=== PATIENT | male | born 1950 | race Two or more races ===

== ENCOUNTER 2022-06-08 12:57 | Emergency (ER) | payer MEDICAID, OTHER ==
[~2022-06-08] VITALS: Ht 182.9 cm; Wt 100.0 kg
[2022-06-08 14:17] LABS: Basophils # (auto) 0.1 10 ^3/uL (0-0.2); Basophils % (auto) 0.5 % (0.0-2.0); Eosinophils # (auto) 0 10 ^3/uL (0-0.8); Eosinophils % (auto) 0.3 % (0.0-7.0); Hematocrit 42.3 % (41.0-53.0); Hemoglobin 15.2 g/dL (13.5-17.5); Lymphocytes # (auto) 1.5 10 ^3/uL (0.4-5.4); Lymphocytes % (auto) 14.8 % (10.0-50.0); Mean Corpuscular Hemoglobin 32.8 pg (28.0-32.0); Mean Corpuscular Hgb Conc. 35.9 g/dL (32.0-36.0); Mean Corpuscular Volume 91.5 fL (80.0-100.0); Monocytes # (auto) 0.5 10 ^3/uL (0-1.3); Neutrophils % (auto) 79.4 % (37.0-80.0); Red Blood Cells 4.63 10^6/uL (4.5-5.90); Red Cell Distribution Width 13.7 % (11.8-14.3); White Blood Cell 10.1 10^3/uL (4.4-10.8)
[2022-06-08 14:24] LABS: Albumin 3.9 g/dL (3.4-5.0); BUN/Creatinine Ratio 20.2; Calcium 9.1 mg/dL (8.5-10.1); Potassium 4.3 mmol/L (3.5-5.1)
[2022-06-08 14:27] LABS: Bilirubin, Total 0.7 mg/dL (0.2-1.0); Total Protein 7.9 g/dL (6.4-8.2)
[2022-06-08] MEDS ORDERED: TRAM-297 PO (14:58)
[2022-06-08] MEDS ORDERED: KETOROLAC TROMETH 30 MG/ML 1ML VIAL IV ONE (15:00)
[2022-06-08] MEDS ORDERED: KETOROLAC TROMETH 60MG/2ML VIAL IM ONE (16:15)
[2022-06-08 17:30] VITALS: BP 136/83
== END 2022-06-08 18:03 | disposition home or self-care (01) ==
LOC: ER 12:57 → EDBD 12:57 → ER 18:03
DX: S22.41XA Multiple fractures of ribs, right side, initial encounter for closed fracture (principal); M54.2 Cervicalgia; W18.11XA Fall from or off toilet without subsequent striking against object, initial encounter; Y93.E1 Activity, personal bathing and showering; Y92.89 Other specified places as the place of occurrence of the external cause; Y99.8 Other external cause status
CPT/HCPCS: 36415; 70450; 71101; 72125; 80053; 85025; 93005; 96374; 99285; J1885

== ENCOUNTER 2022-06-18 19:21 | Emergency (ER) | payer MEDICAID ==
[~2022-06-18] VITALS: Ht 177.8 cm; Wt 85.0 kg
[~2022-06-18 19:21] MED LIST: TRAM-297 PO
[2022-06-18 21:29] LABS: Basophils # (auto) 0.1 10 ^3/uL (0-0.2); Basophils % (auto) 0.7 % (0.0-2.0); Eosinophils # (auto) 0.5 10 ^3/uL (0-0.8); Eosinophils % (auto) 5.6 % (0.0-7.0); Hematocrit 39.1 % (41.0-53.0); Hemoglobin 13.6 g/dL (13.5-17.5); Lymphocytes # (auto) 1.5 10 ^3/uL (0.4-5.4); Lymphocytes % (auto) 18.4 % (10.0-50.0); Mean Corpuscular Hgb Conc. 34.9 g/dL (32.0-36.0); Mean Corpuscular Volume 91.6 fL (80.0-100.0); Monocytes # (auto) 0.5 10 ^3/uL (0-1.3); Neutrophils # (auto) 5.8 10 ^3/uL (1.6-8.6); Neutrophils % (auto) 69.3 % (37.0-80.0); Red Blood Cells 4.27 10^6/uL (4.5-5.90); Red Cell Distribution Width 13.7 % (11.8-14.3); White Blood Cell 8.3 10^3/uL (4.4-10.8)
[2022-06-18 21:43] LABS: Albumin 3.3 g/dL (3.4-5.0); BUN/Creatinine Ratio 15.8; Calcium 8.9 mg/dL (8.5-10.1); Potassium 4.7 mmol/L (3.5-5.1)
[2022-06-18 21:46] LABS: Bilirubin, Total 1.1 mg/dL (0.2-1.0); Total Protein 6.8 g/dL (6.4-8.2)
[2022-06-18] MEDS ORDERED: ONDANSETRON HCL 4 MG/2 ML VIAL IV ONE (22:45)
[2022-06-18] MEDS ORDERED: HYDROmorphone HCL 2 MG/ML VL/or syr IV ONE (22:45)
[2022-06-18] MEDS ORDERED: SODIUM CHLORIDE 0.9% 500 ML IV ONE (22:45)
[2022-06-19 01:35] VITALS: BP 105/63
== END 2022-06-19 01:36 | disposition short-term general hospital (02) ==
LOC: ER 19:21 → EDBD 19:21 → ER 06-19 00:30
DX: S22.41XA Multiple fractures of ribs, right side, initial encounter for closed fracture (principal); J90 Pleural effusion, not elsewhere classified; R07.89 Other chest pain; Z79.899 Other long term (current) drug therapy; W18.39XA Other fall on same level, initial encounter; Y93.89 Activity, other specified; Y92.89 Other specified places as the place of occurrence of the external cause; Y99.8 Other external cause status
CPT/HCPCS: 36415; 70450; 71045; 71250; 72125; 74176; 80053; 82550; 84484; 85025; 93005; 96361; 96374; 96375; 99285; J1170; J2405; J7030

== ENCOUNTER 2022-12-21 18:57 | Emergency (ER) | payer MEDICAID ==
[~2022-12-21] VITALS: Ht 177.8 cm; Wt 90.0 kg
[2022-12-21] MEDS ORDERED: ONDANSETRON HCL 4 MG/2 ML VIAL IV ONE (20:00)
[2022-12-21] MEDS ORDERED: MORPHINE SULFATE INJ 2 MG/ml SYRG IV ONE (20:00)
[2022-12-21 20:12] LABS: Basophils # (auto) 0.1 10 ^3/uL (0-0.2); Basophils % (auto) 0.9 % (0.0-2.0); Eosinophils # (auto) 0.1 10 ^3/uL (0-0.8); Eosinophils % (auto) 2.2 % (0.0-7.0); Hematocrit 38.3 % (41.0-53.0); Hemoglobin 13.5 g/dL (13.5-17.5); Lymphocytes # (auto) 1.8 10 ^3/uL (0.4-5.4); Lymphocytes % (auto) 30.4 % (10.0-50.0); Mean Corpuscular Hemoglobin 32.2 pg (28.0-32.0); Mean Corpuscular Hgb Conc. 35.4 g/dL (32.0-36.0); Mean Corpuscular Volume 90.9 fL (80.0-100.0); Monocytes # (auto) 0.4 10 ^3/uL (0-1.3); Monocytes % (auto) 6.8 % (0.0-12.0); Neutrophils # (auto) 3.6 10 ^3/uL (1.6-8.6); Neutrophils % (auto) 59.7 % (37.0-80.0); Nucleated Red Blood Cells % 0.2 %; Red Blood Cells 4.21 10^6/uL (4.5-5.90); White Blood Cell 6.1 10^3/uL (4.4-10.8)
[2022-12-21 20:18] LABS: Albumin 3.8 g/dL (3.4-5.0); Potassium 4.4 mmol/L (3.5-5.1)
[2022-12-21 20:23] LABS: INR 1.05 (0.9-1.15); Partial Thromboplastin Time 28.3 sec (24.6-33.4)
[2022-12-21 20:26] LABS: BUN/Creatinine Ratio 18.7 (10.0-20.0); Bilirubin, Total 0.7 mg/dL (0.2-1.0); Total Protein 7.3 g/dL (6.4-8.2)
[2022-12-21 21:11] LABS: Urine Bacteria NONE SEEN /hpf (None Seen); Urine Blood 3+ /uL (Negative); Urine Specific Gravity 1.017 (1.001-1.035); Urine WBC 2 /hpf (0 - 3)
[2022-12-22] MEDS ORDERED: SODIUM CHLORIDE 0.9% 500 ML IV ONE (01:00)
[2022-12-22 02:00] VITALS: BP 106/56
[2022-12-22] MEDS ORDERED: KETOROLAC TROMETH 30 MG/ML 1ML VIAL IV ONE (02:15)
[2022-12-22] MEDS ORDERED: CYCLOBENZAPRINE HCL 10 MG TAB PO ONE (02:15)
== END 2022-12-22 00:50 | disposition home or self-care (01) ==
LOC: EDBD 18:57 → ER 18:57
DX: S00.83XA Contusion of other part of head, initial encounter (principal); S70.02XA Contusion of left hip, initial encounter; W18.39XA Other fall on same level, initial encounter; Y93.89 Activity, other specified; Y92.89 Other specified places as the place of occurrence of the external cause; Y99.8 Other external cause status
CPT/HCPCS: 36415; 70450; 71045; 71250; 72125; 73502; 74176; 80053; 81001; 85025; 85610; 85730; 96361; 96374; 96375; 99285; J1885; J2270; J2405; J7040

== ENCOUNTER 2023-04-11 19:43 | Emergency (ER) | payer MEDICAID ==
[~2023-04-11] VITALS: Ht 170.2 cm; Wt 82.0 kg
[2023-04-11 21:42] LABS: Basophils # (auto) 0.1 10 ^3/uL (0-0.2); Basophils % (auto) 1.1 % (0.0-2.0); Eosinophils # (auto) 0.1 10 ^3/uL (0-0.8); Eosinophils % (auto) 1.9 % (0.0-7.0); Hematocrit 42.2 % (41.0-53.0); Hemoglobin 14.8 g/dL (13.5-17.5); Lymphocytes # (auto) 1.9 10 ^3/uL (0.4-5.4); Lymphocytes % (auto) 35.6 % (10.0-50.0); Mean Corpuscular Hemoglobin 33.2 pg (28.0-32.0); Mean Corpuscular Hgb Conc. 35.1 g/dL (32.0-36.0); Mean Corpuscular Volume 94.6 fL (80.0-100.0); Monocytes # (auto) 0.4 10 ^3/uL (0-1.3); Monocytes % (auto) 6.6 % (0.0-12.0); Neutrophils # (auto) 2.9 10 ^3/uL (1.6-8.6); Neutrophils % (auto) 54.8 % (37.0-80.0); Nucleated Red Blood Cells % 0.2 %; Red Blood Cells 4.46 10^6/uL (4.5-5.90); Red Cell Distribution Width 14.1 % (11.8-14.3); White Blood Cell 5.3 10^3/uL (4.4-10.8)
[2023-04-11 22:10] LABS: Alanine Aminotransferase 16 U/L (7-40); Albumin 4.6 g/dL (3.2-4.8); Alkaline Phosphatase 66 U/L (46-116); Anion Gap 8.4 (5-15); Aspartate Aminotransferase < 8 U/L (13-40); BUN/Creatinine Ratio 20.2 (10.0-20.0); Bilirubin, Total 1.1 mg/dL (0.2-1.0); Blood Urea Nitrogen 26 mg/dL (9-23); Carbon Dioxide 28.6 mmol/L (20-30); Chloride 105 mmol/L (98-107); Glucose 89 mg/dL (74-106); Magnesium 2.1 mg/dL (1.6-2.6); Potassium 4.5 mmol/L (3.5-5.1); Sodium 142 mmol/L (136-145); Total Protein 7.4 g/dL (5.7-8.2)
[2023-04-11] MEDS ORDERED: METOCLOPRAMIDE HCL 5MG/ml INJ 2ml VIAL IV ONE (22:30)
[2023-04-11] MEDS ORDERED: diphenhdrAMINE HCL 50 MG/1 ML VL IV ONE (22:30)
[2023-04-11] MEDS ORDERED: KETOROLAC TROMETH 30 MG/ML 1ML VIAL IV ONE (22:30)
[2023-04-11] MEDS ORDERED: LACTATED RINGER'S 1,000 ML IV ONE (22:30)
[2023-04-11 23:45] VITALS: TEMP 97.6
[2023-04-11 23:50] VITALS: PULSE 55; RESP 18; O2SAT 97
[2023-04-12 03:45] VITALS: BP 109/68; PULSE 57; RESP 14; O2SAT 97
== END 2023-04-12 06:11 | disposition home or self-care (01) ==
LOC: EDBD 19:43 → ER 19:45
DX: R51.9 Headache, unspecified (principal); R41.82 Altered mental status, unspecified; E86.0 Dehydration; R79.89 Other specified abnormal findings of blood chemistry; G20 Parkinson's disease; F02.80 Dementia in other diseases classified elsewhere, unspecified severity, without behavioral disturbance, psychotic disturbance, mood disturbance, and anxiety
CPT/HCPCS: 36415; 70450; 80053; 83735; 84484; 85025; 96361; 96374; 96375; 99285; J1200; J1885; J2765

== ENCOUNTER 2023-09-17 18:02 | Inpatient (IN) | payer MEDICAID ==
[~2023-09-17] VITALS: Ht 172.7 cm; Wt 94.2 kg
[2023-09-17 19:02] LABS: Basophils # (auto) 0 10 ^3/uL (0-0.2); Basophils % (auto) 0.1 % (0.0-2.0); Eosinophils # (auto) 0 10 ^3/uL (0-0.8); Hematocrit 39.4 % (41.0-53.0); Hemoglobin 13.5 g/dL (13.5-17.5); Lymphocytes # (auto) 0.8 10 ^3/uL (0.4-5.4); Lymphocytes % (auto) 5.3 % (10.0-50.0); Mean Corpuscular Hemoglobin 32.3 pg (28.0-32.0); Mean Corpuscular Hgb Conc. 34.4 g/dL (32.0-36.0); Monocytes # (auto) 0.9 10 ^3/uL (0-1.3); Monocytes % (auto) 6.1 % (0.0-12.0); Neutrophils # (auto) 12.8 10 ^3/uL (1.6-8.6); Neutrophils % (auto) 88.5 % (37.0-80.0); Red Blood Cells 4.19 10^6/uL (4.5-5.90); Red Cell Distribution Width 13.6 % (11.8-14.3); White Blood Cell 14.5 10^3/uL (4.4-10.8)
[2023-09-17 19:16] LABS: INR 1.14 (0.9-1.15); Partial Thromboplastin Time 33.1 SEC (24.5-34.5); Prothrombin Time 11.9 sec (9.3-11.8)
[2023-09-17 19:18] LABS: Alanine Aminotransferase 20 U/L (7-40); Albumin 4.4 g/dL (3.2-4.8); Alkaline Phosphatase 88 U/L (46-116); Anion Gap 9 (5-15); Aspartate Aminotransferase 48 U/L (13-40); BUN/Creatinine Ratio 13.9 (10.0-20.0); Bilirubin, Total 1.6 mg/dL (0.2-1.0); Blood Urea Nitrogen 32 mg/dL (9-23); Calcium 9.9 mg/dL (8.5-10.1); Carbon Dioxide 22 mmol/L (20-30); Chloride 109 mmol/L (98-107); Glucose 119 mg/dL (74-106); Potassium 3.8 mmol/L (3.5-5.1); Sodium 140 mmol/L (136-145); Total Protein 7.4 g/dL (5.7-8.2)
[2023-09-17] MEDS: SODIUM CHLORIDE 0.9% 1,000 ML IVB ONE (19:23)
[2023-09-17] MEDS: KETOROLAC TROMETH 30 MG/ML 1ML VIAL IM ONE (19:23)
[2023-09-17] MEDS: ONDANSETRON ODT 4 MG TAB PO ONE (19:23)
[2023-09-17 19:30] LABS: Lipase 47 U/L (12-53)
[2023-09-17 20:06] VITALS: PULSE 79; RESP 20; O2SAT 98
[2023-09-17] MEDS: PIPERACILLIN-TAZOB 3.375GM 100 ML IV ONE (21:10)
[2023-09-17 21:13] LABS: Urine Bacteria NONE SEEN /hpf (None Seen); Urine Blood 3+ /uL (Negative); Urine Clarity HAZY (Clear); Urine Color Red (Yellow); Urine Mucus FEW (None Seen); Urine Protein, UAD 2+ (Negative); Urine Specific Gravity 1.014 (1.001-1.035); Urine Urobilinogen Normal (Negative); Urine WBC 88 /hpf (0 - 3)
[2023-09-17] MEDS: ONDANSETRON HCL 4 MG/2 ML VIAL IV ONE (22:59)
[2023-09-17] MEDS: MORPHINE SULFATE INJ 2 MG/ml SYRG IV ONE (23:01)
[2023-09-17] MEDS ORDERED: NITROGLYCERIN 0.4 MG SL TAB SL PRN (23:45)
[2023-09-17] MEDS ORDERED: MORPHINE SULFATE INJ 2 MG/ml SYRG IV PRN ×2 (23:45)
[2023-09-17] MEDS ORDERED: ACETAMINOPHEN 325 MG TAB PO PRN (23:45)
[2023-09-17] MEDS ORDERED: ONDANSETRON HCL 4 MG/2 ML VIAL IV PRN (23:45)
[2023-09-17] MEDS ORDERED: DOCUSATE SOD 100 MG CAP PO PRN (23:45)
[2023-09-18] MEDS: SODIUM CHLOR 0.9% PF (SALINE LOCK) 10ML VIAL/SYR IV SCH (06:00)
[2023-09-18 06:05] LABS: Basophils # (auto) 0 10 ^3/uL (0-0.2); Basophils % (auto) 0.4 % (0.0-2.0); Eosinophils # (auto) 0 10 ^3/uL (0-0.8); Hemoglobin 12.2 g/dL (13.5-17.5); Lymphocytes # (auto) 0.9 10 ^3/uL (0.4-5.4); Lymphocytes % (auto) 7.3 % (10.0-50.0); Mean Corpuscular Hemoglobin 32.5 pg (28.0-32.0); Monocytes # (auto) 0.7 10 ^3/uL (0-1.3); Monocytes % (auto) 6.1 % (0.0-12.0); Neutrophils # (auto) 10.2 10 ^3/uL (1.6-8.6); Neutrophils % (auto) 86.2 % (37.0-80.0); Red Blood Cells 3.77 10^6/uL (4.5-5.90); Red Cell Distribution Width 13.8 % (11.8-14.3); White Blood Cell 11.8 10^3/uL (4.4-10.8)
[2023-09-18 06:15] LABS: Alanine Aminotransferase 28 U/L (7-40); Alkaline Phosphatase 87 U/L (46-116); Anion Gap 10 (5-15); BUN/Creatinine Ratio 19.6 (10.0-20.0); Calcium 8.8 mg/dL (8.7-10.4); Carbon Dioxide 21 mmol/L (20-30); Chloride 110 mmol/L (98-107); Glucose 127 mg/dL (74-106); Sodium 141 mmol/L (136-145)
[2023-09-18 06:16] LABS: Albumin 3.7 g/dL (3.2-4.8); Aspartate Aminotransferase 51 U/L (13-40); Bilirubin, Total 1.5 mg/dL (0.2-1.0); Total Protein 6.1 g/dL (5.7-8.2)
[2023-09-18] MEDS: PIPERACILLIN-TAZOB 3.375GM 100 ML IV SCH (06:32)
[2023-09-18 06:42] LABS: Blood Urea Nitrogen 44 mg/dL (9-23)
[2023-09-18 07:45] VITALS: PULSE 79; RESP 20; O2SAT 98
[2023-09-18 11:00] VITALS: BP 102/61; PULSE 75; RESP 14; TEMP 98.3; O2SAT 98
[2023-09-18 11:01] VITALS: BP 102/61; PULSE 75; RESP 14; TEMP 98.3; O2SAT 98
[2023-09-18] MEDS: SOD CHL 0.45% 1,000 ML IV SCH (11:42)
[2023-09-18] MEDS: HEPARIN SODIUM (PORCINE) 5000 UNITS/ML 1ML VIAL SC SCH (11:42)
[2023-09-18 13:00] VITALS: BP 119/69; PULSE 67; RESP 16; TEMP 98.1; O2SAT 97
[2023-09-18] MEDS: LACTULOSE 20Gm/30ML SOLN PO ONE (15:29)
[2023-09-18] MEDS: HYDROcodone-ACET 5/325MG TAB PO PRN (15:29)
[2023-09-18 17:00] VITALS: BP_SYST 113; BP_SYST 156; BP_DIAS 66; BP_DIAS 89; PULSE 72; PULSE 84; RESP 16; RESP 20; TEMP 97.7; TEMP 98; O2SAT 94; O2SAT 97
[2023-09-18] MEDS: LACTULOSE 20Gm/30ML SOLN PO SCH (18:04)
[2023-09-18] MEDS: TAMSULOSIN HYDROCHLORIDE 0.4 MG CAP PO SCH (18:04)
[2023-09-18] MEDS ORDERED: GABA-1308 PO (18:46)
[2023-09-18] MEDS ORDERED: TAMS0.4C36 PO (18:49)
[2023-09-18] MEDS ORDERED: CHOL20007 PO (18:49)
[2023-09-18] MEDS ORDERED: NAP500T PO (18:49)
[2023-09-18] MEDS ORDERED: FAMO-12 PO (18:50)
[2023-09-18] MEDS ORDERED: MIRA50TA PO (18:50)
[2023-09-18] MEDS ORDERED: CARB-112 PO (18:51)
[2023-09-18] MEDS ORDERED: DOCU-94 PO (18:52)
[2023-09-18] MEDS ORDERED: OMEG306C PO (18:52)
[2023-09-18] MEDS ORDERED: ACET-1881 PO (18:53)
[2023-09-18 22:00] VITALS: BP 128/71; PULSE 69; RESP 20; TEMP 98.1; O2SAT 96
[2023-09-19 04:52] VITALS: BP 114/68; PULSE 86; RESP 18; TEMP 98.4; O2SAT 97
[2023-09-19 05:12] LABS: Basophils # (auto) 0.1 10 ^3/uL (0-0.2); Basophils % (auto) 0.6 % (0.0-2.0); Eosinophils # (auto) 0.2 10 ^3/uL (0-0.8); Eosinophils % (auto) 2.2 % (0.0-7.0); Hematocrit 34.8 % (41.0-53.0); Lymphocytes # (auto) 1.1 10 ^3/uL (0.4-5.4); Lymphocytes % (auto) 12.9 % (10.0-50.0); Mean Corpuscular Hemoglobin 32.2 pg (28.0-32.0); Mean Corpuscular Hgb Conc. 34.5 g/dL (32.0-36.0); Mean Corpuscular Volume 93.4 fL (80.0-100.0); Monocytes # (auto) 0.9 10 ^3/uL (0-1.3); Monocytes % (auto) 10.8 % (0.0-12.0); Neutrophils # (auto) 6.5 10 ^3/uL (1.6-8.6); Neutrophils % (auto) 73.5 % (37.0-80.0); Red Blood Cells 3.72 10^6/uL (4.5-5.90); Red Cell Distribution Width 13.9 % (11.8-14.3); White Blood Cell 8.8 10^3/uL (4.4-10.8)
[2023-09-19 05:13] LABS: Protein, Urine 247.8 mg/dL (0.0-11.9)
[2023-09-19 05:13] LABS: Chloride 110 mmol/L (98-107); Potassium 4.1 mmol/L (3.5-5.1); Sodium 142 mmol/L (136-145)
[2023-09-19 05:14] LABS: Anion Gap 8 (5-15); Carbon Dioxide 24 mmol/L (20-30)
[2023-09-19 05:16] LABS: Creatinine, Urine 93.99 mg/dL (30.0-125.0)
[2023-09-19 05:18] LABS: Uric Acid 5.9 mg/dL (3.7-9.2)
[2023-09-19 05:19] LABS: BUN/Creatinine Ratio 14.2 (10.0-20.0); Blood Urea Nitrogen 41 mg/dL (9-23); Glucose 108 mg/dL (74-106)
[2023-09-19 05:21] LABS: Phosphorus 3.5 mg/dL (2.4-5.1)
[2023-09-19 08:00] VITALS: BP 117/64; PULSE 64; RESP 18; TEMP 97.8
[2023-09-19 09:00] VITALS: BP 117/64; PULSE 64; RESP 18; TEMP 97.8; O2SAT 98
[2023-09-19 13:00] VITALS: BP_SYST 108; BP_SYST 129; BP_DIAS 58; BP_DIAS 93; PULSE 65; PULSE 83; RESP 18; RESP 20; TEMP 98; TEMP 98.3; O2SAT 95; O2SAT 96
[2023-09-19 22:00] VITALS: BP 127/70; PULSE 89; RESP 18; TEMP 97.8; O2SAT 96
[2023-09-20 05:00] VITALS: BP 106/63; PULSE 74; RESP 16; TEMP 97.7; O2SAT 94
[2023-09-20 08:00] VITALS: PULSE 67; RESP 16; O2SAT 98
[2023-09-20] MEDS ORDERED: IOHEXOL 300 MG/ML 100ML BOTTLE IJ ONE (09:49)
[2023-09-20 13:00] VITALS: BP 116/67; PULSE 67; RESP 16; TEMP 98.4; O2SAT 98
[2023-09-20] MEDS: SODIUM CHLORIDE 0.9% 1,000 ML IV ONE (16:45)
[2023-09-20 17:00] VITALS: BP 127/75; PULSE 66; RESP 18; TEMP 98.3; O2SAT 97
[2023-09-20] MEDS: cefTRIAXone 1GM/50ML D5W 50 ML IV ONE (18:17)
[2023-09-20 22:00] VITALS: BP 124/72; PULSE 77; RESP 19; TEMP 98; O2SAT 96
[2023-09-21] VITALS (8 sets, daily range): BP systolic 108–126; BP diastolic 63–72; PULSE 61–77; RESP 16–19; TEMP 97.3–98.5; O2SAT 62–99
[2023-09-21 07:12] LABS: Anion Gap 8 (5-15); Carbon Dioxide 23 mmol/L (20-30); Chloride 109 mmol/L (98-107); Potassium 4.2 mmol/L (3.5-5.1); Sodium 140 mmol/L (136-145)
[2023-09-21 07:13] LABS: Calcium 9.2 mg/dL (8.5-10.1)
[2023-09-21 07:18] LABS: BUN/Creatinine Ratio 10.8 (10.0-20.0); Blood Urea Nitrogen 33 mg/dL (9-23); Glucose 92 mg/dL (74-106)
[2023-09-21] MEDS: cefTRIAXone 1GM/50ML D5W 50 ML IV SCH (08:56)
[2023-09-21] MEDS: SODIUM CHLORIDE 0.9% 1,000 ML IV ONE (18:10)
[2023-09-21] MEDS: CALCIUM CARB 500 MG CHEW TAB PO ONE (22:49)
[2023-09-22] VITALS (7 sets, daily range): BP systolic 110–125; BP diastolic 65–74; PULSE 65–71; RESP 16–22; TEMP 97.3–98.5; O2SAT 95–98
[2023-09-23 05:00] VITALS: BP 109/68; PULSE 60; RESP 18; TEMP 98.7; O2SAT 92
[2023-09-23 09:04] VITALS: BP 122/73; PULSE 54; RESP 17; TEMP 98.5; O2SAT 96
[2023-09-23 10:27] LABS: Basophils # (auto) 0 10 ^3/uL (0-0.2); Basophils % (auto) 0.7 % (0.0-2.0); Eosinophils # (auto) 0.2 10 ^3/uL (0-0.8); Eosinophils % (auto) 3.3 % (0.0-7.0); Hematocrit 38.4 % (41.0-53.0); Hemoglobin 13.1 g/dL (13.5-17.5); Lymphocytes # (auto) 1.6 10 ^3/uL (0.4-5.4); Lymphocytes % (auto) 25.8 % (10.0-50.0); Mean Corpuscular Hemoglobin 32.5 pg (28.0-32.0); Mean Corpuscular Volume 95.6 fL (80.0-100.0); Monocytes # (auto) 0.5 10 ^3/uL (0-1.3); Monocytes % (auto) 8.1 % (0.0-12.0); Neutrophils # (auto) 3.9 10 ^3/uL (1.6-8.6); Neutrophils % (auto) 62.1 % (37.0-80.0); Nucleated Red Blood Cells % 0.1 %; Red Blood Cells 4.02 10^6/uL (4.5-5.90); Red Cell Distribution Width 13.4 % (11.8-14.3); White Blood Cell 6.2 10^3/uL (4.4-10.8)
[2023-09-23 10:46] LABS: Alanine Aminotransferase 67 U/L (7-40); Albumin 3.7 g/dL (3.2-4.8); Alkaline Phosphatase 126 U/L (46-116); Anion Gap 9 (5-15); Aspartate Aminotransferase 58 U/L (13-40); BUN/Creatinine Ratio 13.9 (10.0-20.0); Blood Urea Nitrogen 40 mg/dL (9-23); Calcium 9.2 mg/dL (8.5-10.1); Carbon Dioxide 26 mmol/L (20-30); Chloride 106 mmol/L (98-107); Glucose 134 mg/dL (74-106); Potassium 4.3 mmol/L (3.5-5.1); Sodium 141 mmol/L (136-145)
[2023-09-23 10:47] LABS: Bilirubin, Total 0.6 mg/dL (0.2-1.0); Total Protein 6.1 g/dL (5.7-8.2)
[2023-09-23 13:42] VITALS: BP 112/63; PULSE 59; RESP 16; TEMP 98.2; O2SAT 98
[2023-09-23 17:23] VITALS: BP 129/62; PULSE 67; TEMP 97.2; O2SAT 98
== END 2023-09-23 19:20 | DRG 463 ==
LOC: ER 18:02 → EDBD 18:02 → OVERFLOW 23:37 → CENTRAL 09-18 10:01
PROVIDERS: ADMIT Nurse Practitioner Family; ATTEND Family Medicine
DX: N30.91 Cystitis, unspecified with hematuria (principal); N17.0 Acute kidney failure with tubular necrosis; G30.9 Alzheimer's disease, unspecified; F02.80 Dementia in other diseases classified elsewhere, unspecified severity, without behavioral disturbance, psychotic disturbance, mood disturbance, and anxiety; G20.A1 Parkinson's disease without dyskinesia, without mention of fluctuations; R26.81 Unsteadiness on feet; N28.1 Cyst of kidney, acquired; K21.9 Gastro-esophageal reflux disease without esophagitis; N18.32 Chronic kidney disease, stage 3b; K59.00 Constipation, unspecified; D72.829 Elevated white blood cell count, unspecified; Z85.038 Personal history of other malignant neoplasm of large intestine; Z74.01 Bed confinement status
CPT/HCPCS: 36415; 74176; 74178; 76775; 80048; 80053; 81001; 82570; 83605; 83690; 84100; 84156; 84300; 84443; 84484; 84550; 85025; 85610; 85730; 87040; 87086; 87088; 87186; 93971; 96361; 96365; 96366; 96375; 97110; 97116; 97163; 97530; G0378; J1885; J2405; J2543; Q0162